=== PATIENT | female | born 1985 | race Caucasian/White ===

== ENCOUNTER 2020-03-04 07:50 | Observation (INO) | payer OTHER ==
[2020-03-04 08:40] VITALS: BP 119/77; PULSE 80
== END 2020-03-04 09:01 | disposition home or self-care (01) ==
LOC: OB 08:15
PROVIDERS: ADMIT Obstetrics & Gynecology; ATTEND Obstetrics & Gynecology
DX: O36.5999 Maternal care for other known or suspected poor fetal growth, unspecified trimester, other fetus (principal); Z3A.35 35 weeks gestation of pregnancy
CPT/HCPCS: 59025; G0378

== ENCOUNTER 2020-03-08 08:06 | Observation (INO) | payer OTHER | END 2020-03-08 09:15 | disposition home or self-care (01) | LOC: OB 08:06 | PROVIDERS: ADMIT Obstetrics & Gynecology; ATTEND Obstetrics & Gynecology | DX: O36.5999 Maternal care for other known or suspected poor fetal growth, unspecified trimester, other fetus (principal); Z3A.36 36 weeks gestation of pregnancy | CPT/HCPCS: 59025; G0378 ==

== ENCOUNTER 2020-03-10 10:48 | Observation (INO) | payer OTHER ==
[2020-03-11 08:37] VITALS: BP 115/75
[2020-03-11 08:59] VITALS: PULSE 104
== END 2020-03-11 09:35 | disposition home or self-care (01) ==
LOC: WHC 10:48 → OB 03-11 08:07
PROVIDERS: ADMIT Obstetrics & Gynecology; ATTEND Obstetrics & Gynecology
DX: Z34.83 Encounter for supervision of other normal pregnancy, third trimester (principal)
CPT/HCPCS: 59025; 87081; G0378; 59425; 81002

== ENCOUNTER 2020-03-15 09:38 | Observation (INO) | payer OTHER ==
[2020-03-15 10:31] VITALS: BP 111/68; PULSE 84
== END 2020-03-15 10:25 | disposition home or self-care (01) ==
LOC: OB 09:38
PROVIDERS: ADMIT Obstetrics & Gynecology; ATTEND Obstetrics & Gynecology
DX: Z34.83 Encounter for supervision of other normal pregnancy, third trimester (principal)
CPT/HCPCS: 59025; G0378

== ENCOUNTER 2020-03-18 09:35 | Observation (INO) | payer OTHER ==
[2020-03-18 10:50] VITALS: BP 115/74; PULSE 96
== END 2020-03-18 10:25 | disposition home or self-care (01) ==
LOC: OB 09:35
PROVIDERS: ADMIT Obstetrics & Gynecology; ATTEND Obstetrics & Gynecology
DX: O36.5930 Maternal care for other known or suspected poor fetal growth, third trimester, not applicable or unspecified (principal); Z3A.37 37 weeks gestation of pregnancy
CPT/HCPCS: 59025; G0378

== ENCOUNTER 2020-03-19 22:00 | Observation (INO) | payer OTHER ==
[2020-03-19 22:44] LABS: Amourphous Crystal FEW /HPF (NEGATIVE); Appearance SLIGHTLY CLOUDY (CLEAR); Bacteria RARE /HPF (NEGATIVE); Bilirubin NEGATIVE (NEGATIVE); Blood SMALL Ery/ul (0-5); Glucose NEGATIVE (NEGATIVE); Ketones NEGATIVE (NEGATIVE); Leukocyte Esterase MODERATE (NEGATIVE); Mucus SLIGHT /HPF (NEGATIVE); Nitrite NEGATIVE (NEGATIVE); Protein,Urine Dip NEGATIVE (Negative); Specific Gravity 1.008 (1.005-1.025); Urobilinogen NEGATIVE mg/dL (0-1); WBC 26-50 /HPF (0-5)
[2020-03-19 22:54] LABS: Amphetamine,Urine NEGATIVE (NEGATIVE); Barbiturate,Urine NEGATIVE (NEGATIVE); Benzodiazepine,Urine NEGATIVE (NEGATIVE); Cocaine,Urine NEGATIVE (NEGATIVE); Methadone,Urine NEGATIVE (NEGATIVE); Opiate,Urine NEGATIVE (NEGATIVE); PCP,Urine NEGATIVE (NEGATIVE); THC,Urine NEGATIVE (NEGATIVE)
[2020-03-19] MEDS: Lactated Ringers 1,000 ML IV SCH (23:02)
[2020-03-19 23:08] LABS: Absolute Neutrophil Ct (ANC) 6.08 (1.4-6.9); BASOPHIL % 0.3 % (0.0-0.4); Basophil (Absolute #) 0.03 (0-0.4); Eosinophil % 0.8 % (0.00-5.0); Eosinophil (Absolute #) 0.07 (0-0.5); Hemoglobin 10.2 gm/dl (12.0-16.0); Lymphocyte (Absolute #) 1.91 (1.0-4.6); Lymphocytes % 21.9 % (24.0-44.0); Mean Cell Volume 89.1 fl (78-100); Mean Corpuscular Hemoglobin 28.4 pg (26-32); Mean Corpuscular Hgb Concent. 31.9 g/dl (32-36); Mean Platelet Volume 9.8 fl (7.5-11.0); Monocyte (Absolute #) 0.64 (0.0-1.3); Monocytes % 7.3 % (0.0-12.0); Neutrophil % 69.7 % (36.0-66.0); Platelet Count 190 K/mm3 (150-450); Red Blood Count 3.59 M/mm3 (4.1-5.4); Red Cell Distribution Width 15.7 % (11.5-14.0); White Blood Count 8.7 K/mm3 (4.0-10.5)
[2020-03-19 23:55] LABS: ABO TYPING A; Antibody Screen NEGATIVE (NEGATIVE); RH TYPING POSITIVE
[2020-03-20 04:53] VITALS: O2SAT 98
[2020-03-20] MEDS: Lactated Ringers 1,000 ML IV SCH (07:00)
[2020-03-20 09:05] VITALS: BP 114/68; PULSE 76
== END 2020-03-20 09:21 | disposition home or self-care (01) ==
LOC: OB 22:00
PROVIDERS: ADMIT Obstetrics & Gynecology; ATTEND Obstetrics & Gynecology
DX: O47.1 False labor at or after 37 completed weeks of gestation (principal); Z3A.37 37 weeks gestation of pregnancy
CPT/HCPCS: 36415; 80307; 81001; 85025; 86850; 86900; 86901; 87086; 87340; G0378

== ENCOUNTER 2020-03-22 07:01 | Observation (INO) | payer OTHER ==
[2020-03-22 10:39] VITALS: BP 123/77; PULSE 82
== END 2020-03-22 10:30 | disposition home or self-care (01) ==
LOC: OB 09:59
PROVIDERS: ADMIT Obstetrics & Gynecology; ATTEND Obstetrics & Gynecology
DX: O36.5930 Maternal care for other known or suspected poor fetal growth, third trimester, not applicable or unspecified (principal); Z3A.38 38 weeks gestation of pregnancy
CPT/HCPCS: 59025; 76816; G0378

== ENCOUNTER 2020-03-25 10:40 | Observation (INO) | payer OTHER ==
[2020-03-25 11:38] VITALS: BP 116/76; PULSE 81
== END 2020-03-25 11:25 | disposition home or self-care (01) ==
LOC: OB 10:40
PROVIDERS: ADMIT Obstetrics & Gynecology; ATTEND Obstetrics & Gynecology
DX: O36.5930 Maternal care for other known or suspected poor fetal growth, third trimester, not applicable or unspecified (principal); Z3A.38 38 weeks gestation of pregnancy
CPT/HCPCS: 59025; G0378

== ENCOUNTER 2020-03-28 03:40 | Inpatient (IN) | payer OTHER ==
[2020-03-28] MEDS ORDERED: STADOL 2 MG IV PRN (20:44)
[2020-03-28] MEDS ORDERED: TYLENOL EXTRA STRENGTH 500 MG PO PRN (20:44)
[2020-03-28] MEDS ORDERED: Zofran 4 MG/2 ML VIAL IV PRN (20:44)
[2020-03-28] MEDS ORDERED: OB EPIDURAL NAROPIN/SUFENTANIL IN NACL EPIDURAL PRN (20:44)
[2020-03-28] MEDS ORDERED: Ephedrine Sulfate 50 MG/ML IV PRN (20:44)
[2020-03-28] MEDS ORDERED: XYLOCAINE 1% HCL 20 ML MDV IJ PRN (20:44)
[2020-03-28] MEDS ORDERED: Nubain 10 MG/ML IV PRN (20:44)
[2020-03-28] MEDS ORDERED: Phenergan 25 MG INJ IV PRN (20:44)
[2020-03-28] MEDS ORDERED: PITOCIN 30 UNITS/ LR 500 ML 30 UNITS/500 ML IV.SOLN. IV SCH (21:00)
[2020-03-28] MEDS: CYTOTEC PO SCH ×2 (21:22→23:19)
[2020-03-28 22:17] LABS: Absolute Neutrophil Ct (ANC) 5.66 (1.4-6.9); BASOPHIL % 0.1 % (0.0-0.4); Basophil (Absolute #) 0.01 (0-0.4); Eosinophil % 0.9 % (0.00-5.0); Eosinophil (Absolute #) 0.08 (0-0.5); Hematocrit 34.3 % (35-47); Lymphocyte (Absolute #) 2.17 (1.0-4.6); Lymphocytes % 25.3 % (24.0-44.0); Mean Cell Volume 89.6 fl (78-100); Mean Corpuscular Hemoglobin 28.7 pg (26-32); Mean Corpuscular Hgb Concent. 32.1 g/dl (32-36); Mean Platelet Volume 10.2 fl (7.5-11.0); Monocyte (Absolute #) 0.66 (0.0-1.3); Monocytes % 7.7 % (0.0-12.0); Platelet Count 232 K/mm3 (150-450); Red Blood Count 3.83 M/mm3 (4.1-5.4); White Blood Count 8.6 K/mm3 (4.0-10.5)
[2020-03-28 22:32] LABS: Amphetamine,Urine NEGATIVE (NEGATIVE); Barbiturate,Urine NEGATIVE (NEGATIVE); Benzodiazepine,Urine NEGATIVE (NEGATIVE); Cocaine,Urine NEGATIVE (NEGATIVE); Methadone,Urine NEGATIVE (NEGATIVE); Opiate,Urine NEGATIVE (NEGATIVE); PCP,Urine NEGATIVE (NEGATIVE); THC,Urine NEGATIVE (NEGATIVE)
[2020-03-28] MEDS: Lactated Ringers 1,000 ML IV ONE (23:17)
[2020-03-28] MEDS: Lactated Ringers 1,000 ML IV SCH (23:18)
[2020-03-29] MEDS: CYTOTEC PO SCH ×5 (01:15→22:39)
[2020-03-29] MEDS: Lactated Ringers 1,000 ML IV ONE (06:10)
[2020-03-29 07:50] VITALS: O2SAT 98
[2020-03-29] MEDS ORDERED: Anucort-HC SUPPOSITORY PR PRN (07:54)
[2020-03-29] MEDS ORDERED: Dulcolax 10 MG SUPP PR PRN (07:54)
[2020-03-29] MEDS ORDERED: CORTISONE 1% CREAM TP PRN (07:54)
[2020-03-29] MEDS ORDERED: Mylicon 80MG PO PRN (07:54)
[2020-03-29] MEDS ORDERED: NORCO 5/325 MG PO PRN (07:54)
[2020-03-29] MEDS ORDERED: LANSINOH 40 GM TOP PRN (07:54)
[2020-03-29] MEDS ORDERED: FERREX 150 PO SCH (10:00)
[2020-03-29] MEDS ORDERED: Adacel Vial IM ONE (10:00)
[2020-03-29] MEDS ORDERED: Colace 100 MG PO SCH (10:00)
[2020-03-29] MEDS ORDERED: M-M-R II Vaccine With Diluent SQ ONE (10:00)
[2020-03-29] MEDS: TUCKS TP PRN (11:59)
[2020-03-29] MEDS: Dermoplast Spray TP PRN (12:00)
[2020-03-29] MEDS: MOTRIN 400 MG PO PRN (16:30)
[2020-03-29] MEDS: PITOCIN 30 UNITS/ LR 500 ML 30 UNITS/500 ML IV.SOLN. IV SCH ×2 (22:37→22:40)
[2020-03-29] MEDS: Lactated Ringers 1,000 ML IV SCH ×2 (22:37→22:38)
[2020-03-30] MEDS: Dermoplast Spray TP PRN (04:45)
[2020-03-30] MEDS: TUCKS TP PRN (04:46)
[2020-03-30 04:48] LABS: BASOPHIL % 0.2 % (0.0-0.4); Basophil (Absolute #) 0.02 (0-0.4); Eosinophil % 1.2 % (0.00-5.0); Eosinophil (Absolute #) 0.12 (0-0.5); Hematocrit 33.6 % (35-47); Hemoglobin 10.7 gm/dl (12.0-16.0); Lymphocyte (Absolute #) 2.29 (1.0-4.6); Lymphocytes % 22.8 % (24.0-44.0); Mean Cell Volume 90.6 fl (78-100); Mean Corpuscular Hemoglobin 28.8 pg (26-32); Mean Corpuscular Hgb Concent. 31.8 g/dl (32-36); Mean Platelet Volume 10.2 fl (7.5-11.0); Neutrophil % 68.8 % (36.0-66.0); Platelet Count 210 K/mm3 (150-450); Red Blood Count 3.71 M/mm3 (4.1-5.4); Red Cell Distribution Width 16.2 % (11.5-14.0)
[2020-03-30] MEDS: MOTRIN 400 MG PO PRN (08:27)
--- NOTE | 2020-03-30 11:12 | PCM.NOTE ---
Date and Time: 03/30/20 110 Subjective Assessment: ppd 1 pt resting in bed and doing well without complaints. able to ambulate and tolerate diet. vss afebrile abd; soft uterus; firm lochia; mild hgb/ 10 a/p sp ppd 1 pt stalbe for discharge today baby has appt for ultrasound to ro hydronephrosis tomorrow therefore pt desires to be discharged today pt should fu in office in 6 wks OBJECTIVE DATA Vital Signs: Vital Signs - 24 hr Temp Pulse Resp BP 03/30/20 06:21 20 03/30/20 03:00 20 03/29/20 23:00 98.0 F 86 20 116/72 03/29/20 19:00 97.6 F 70 20 110/65 03/29/20 15:00 98.2 F 80 18 110/66 Pain Assessment - Last Documented Pain Intensity [Anterior/ 2 Posterior] Pain Intensity 5 Pain Scale Used 0-10 Pain Scale Intake and Output: Intake & Output 03/27/20 03/28/20 03/29/20 03/30/20 11:59 11:59 11:59 11:59 Intake Total 240 Balance 240 Weight 81.647 kg Lab Results: Lab Results-Last 24 Hours 03/30/20 Range/Units 04:15 WBC 10.0 (4.0-10.5) K/mm3 RBC 3.71 L (4.1-5.4) M/mm3 Hgb 10.7 L (12.0-16.0) gm/dl Hct 33.6 L (35-47) % MCV 90.6 (78-100) fl MCH 28.8 (26-32) pg MCHC 31.8 L (32-36) g/dl RDW 16.2 H (11.5-14.0) % Plt Count 210 (150-450) K/mm3 MPV 10.2 (7.5-11.0) fl Gran % 68.8 H (36.0-66.0) % Eos # (Auto) 0.12 (0-0.5) Absolute Lymphs (auto) 2.29 (1.0-4.6) Absolute Monos (auto) 0.70 (0.0-1.3) Lymphocytes % 22.8 L (24.0-44.0) % Monocytes % 7.0 (0.0-12.0) % Eosinophils % 1.2 (0.00-5.0) % Basophils % 0.2 (0.0-0.4) % Absolute Granulocytes 6.90 (1.4-6.9) Basophils # 0.02 (0-0.4)
--- NOTE | 2020-03-30 11:16 | PCM.DCORD ---
- Discharge Prescriptions: No Action Aspirin 81 gm Chew [Baby Aspirin 81 mg Chew] 2 mg PO DAILY Vits W-Ca,Fe,FA(<1Mg) [] 1 tab PO DAILY Calcium Carbonate [Tums] 200 mg PO DAILY PRN PRN Reason: Indigestion Follow up with: NORM BROWN DO [ACTIVE STAFF] - 05/11/20 (should fu in office in 6 wks for care)
--- NOTE | 2020-03-30 11:19 | PCM.DS ---
Discharge Summary Date of Admission: 03/29/20 03:40 Admitting Physician: NORM BROWN DO Consults: Consults on Case 03/29/20 07:55 Notify Physician ROUTINE Primary Care Provider: CLIFTON MCCORD Allergies Allergies erythromycin base Allergy (Intermediate, Verified 03/28/20 23:12) Hives Penicillins Adverse Reaction (Mild, Verified 03/28/20 23:12) Itching Hospital Summary - Hospital Course Hospital Course: pt admitted on mar 29 for being in labor and subsequently delivered live baby boy without complication at 0728. during period did very well and had stable h/h and at this time stable for discharge. baby with possible hydronephrosis as was diagnosed with recent ultrasound and now baby scheduled for ultrasound tomorrow in the am. all questions answered to her satisfaction and at this time pt is stable for discharge. - Vitals & Intake/Output Vital Signs: Vital Signs Temperature 98.0 F 03/29/20 23:00 Pulse Rate 86 03/29/20 23:00 Respiratory Rate 20 03/30/20 06:21 Blood Pressure 116/72 03/29/20 23:00 O2 Sat by Pulse Oximetry 98 03/29/20 11:00 Intake & Output: Intake & Output 03/27/20 03/28/20 03/29/20 03/30/20 11:59 11:59 11:59 11:59 Intake Total 240 Balance 240 Weight 81.647 kg - Lab Result Diagrams: 03/30/20 04:15 Lab Results-Last 24 Hrs: Lab Results-Last 24 Hours 03/30/20 Range/Units 04:15 WBC 10.0 (4.0-10.5) K/mm3 RBC 3.71 L (4.1-5.4) M/mm3 Hgb 10.7 L (12.0-16.0) gm/dl Hct 33.6 L (35-47) % MCV 90.6 (78-100) fl MCH 28.8 (26-32) pg MCHC 31.8 L (32-36) g/dl RDW 16.2 H (11.5-14.0) % Plt Count 210 (150-450) K/mm3 MPV 10.2 (7.5-11.0) fl Gran % 68.8 H (36.0-66.0) % Eos # (Auto) 0.12 (0-0.5) Absolute Lymphs (auto) 2.29 (1.0-4.6) Absolute Monos (auto) 0.70 (0.0-1.3) Lymphocytes % 22.8 L (24.0-44.0) % Monocytes % 7.0 (0.0-12.0) % Eosinophils % 1.2 (0.00-5.0) % Basophils % 0.2 (0.0-0.4) % Absolute Granulocytes 6.90 (1.4-6.9) Basophils # 0.02 (0-0.4) - Procedures and Test Procedures and Tests throughout Hospitalization: Therapy Orders & Screens 03/29/20 07:56 Standby ROUTINE Comment: - Discharge Disposition: Home, Self-Care Condition: Stable Prescriptions: No Action Aspirin 81 gm Chew [Baby Aspirin 81 mg Chew] 2 mg PO DAILY Vits W-Ca,Fe,FA(<1Mg) [] 1 tab PO DAILY Calcium Carbonate [Tums] 200 mg PO DAILY PRN PRN Reason: Indigestion Follow up with: NORM BROWN DO [ACTIVE STAFF] - 05/11/20 (should fu in office in 6 wks for care)
[2020-03-30 17:36] VITALS: BP 122/75; PULSE 72
== END 2020-03-30 14:15 | disposition home or self-care (01) | DRG 807 ==
LOC: OB 03:40 → OBSVTOIN 03-29 03:40
PROVIDERS: ADMIT Obstetrics & Gynecology; ATTEND Obstetrics & Gynecology
PROC: 10E0XZZ Delivery of Products of Conception, External Approach (ICD-10-PCS; principal; 2020-03-29)
PROC: 0HQ9XZZ Repair Perineum Skin, External Approach (ICD-10-PCS; 2020-03-29)
DX: O70.0 First degree perineal laceration during delivery (principal); Z37.0 Single live birth; Z3A.39 39 weeks gestation of pregnancy
CPT/HCPCS: 36415; 59400; 80307; 85025; 90707; 90715; 94799; G0378; J2590; J2795; A9270-GY

== ENCOUNTER 2020-06-08 06:28 | Day surgery (SDC) | payer OTHER ==
[2020-06-08] MEDS ORDERED: Lactated Ringers 1,000 ML IV ONE (06:48)
[2020-06-08] MEDS ORDERED: CLINDAMYCIN-D5W 900 MG/50 ML*** 900 MG/50 ML BAG IV ONE (06:48)
[2020-06-08] MEDS ORDERED: Lactated Ringers 1,000 ML IV SCH (07:00)
[2020-06-08] MEDS ORDERED: CLINDAMYCIN-D5W 900 MG/50 ML*** 900 MG/50 ML BAG IV SCH (07:00)
[2020-06-08] MEDS ORDERED: Sensorcaine 0.25% 10 ML ONE (07:21)
[2020-06-08] MEDS ORDERED: DIPRIVAN 200 MG/20 ML IV ONE (08:04)
[2020-06-08] MEDS ORDERED: Decadron 4 MG INJ ONE (08:04)
[2020-06-08] MEDS ORDERED: SUBLIMAZE 100 MCG/2 ML ONE (08:04)
[2020-06-08] MEDS ORDERED: Zemuron 100 MG/10 ML ONE (08:04)
[2020-06-08] MEDS ORDERED: Zofran 4 MG/2 ML VIAL ONE (08:04)
[2020-06-08] MEDS ORDERED: Versed 2 MG/2 ML Injection ONE (08:04)
[2020-06-08] MEDS ORDERED: TORAdol 30 mg Injection ONE (08:49)
[2020-06-08] MEDS ORDERED: BRIDION 200MG/2ML IV ONE (08:51)
[2020-06-08] MEDS ORDERED: NORCO 5/325 MG PO ONE (09:57)
[2020-06-08 10:17] VITALS: O2SAT 98
[2020-06-08 10:26] VITALS: BP 116/82; PULSE 74
--- NOTE | 2020-06-09 11:40 | OP ---
SURGERY DATE/TIME: 06/08/2020 0826 PREOPERATIVE DIAGNOSIS: 1. MULTIPARITY DESIRING TUBAL STERILIZATION. POSTOPERATIVE DIAGNOSIS: 1. MULTIPARITY DESIRING TUBAL STERILIZATION. PROCEDURE: 1. Laparoscopic tubal sterilization via Falope ring application. SURGEON: Jonny Sullivan D.O. HERB DIGGER: mckenna Campbell. ANESTHESIA: General. ESTIMATED BLOOD LOSS: Minimal. COMPLICATIONS: None. INDICATIONS: The risks, benefits, indications and alternatives of the procedure were reviewed with the patient prior to the procedure. The patient understood the risk of infection, bleeding, bowel injury, bladder injury, ureteral injury, uterine perforation, possible , ectopic that may be associated with this procedure as well as irregular bleeding and menorrhagia that could also be associated with this procedure. The patient given all other forms of control as options. However, desires to have this form of control method. DESCRIPTION OF PROCEDURE AND FINDINGS: From this point the patient was taken to the operating room, given general sedation, placed in dorsal lithotomy position. Prepped and draped in the usual sterile fashion. A weighted speculum was then placed in the patient's vagina and the anterior lip of the cervix was grasped with a single tooth tenaculum. From this point, a uterine manipulator was then placed into the endocervical canal and was used to manipulate the uterus. Attention was then turned to the patient's abdomen where a 5 mm incision was made approximately 1 cm above the umbilicus where a 5 mm trocar and sleeve were advanced under direct visualization where pneumoperitoneum was obtained with 4 liters of CO2 gas. An additional incision was made approximately 2 cm above the symphysis pubis where an 8 mm incision was made and the 8 mm trocar was advanced under direct visualization as well. From this point, a survey of the patient's pelvis revealed her to have normal anatomy with no gross abnormalities. From this point, the uterus was elevated with the uterine manipulator and a Falope ring applicator was then inserted into the 8 mm port where it was used approximately 3 cm from the cornua region on the right side. It was applied and displaced on the right isthmic-ampullary region where a good knuckle of tube was obtained with the Falope ring. From this point, the Falope ring applicator was reloaded with another ring and again was displaced on the left side on the isthmic-ampullary region where a good knuckle of approximately 2 cm tube had been obtained with the Falope ring. There was no bleeding noted from either side and no issues or complications that were ascertained. From this point, all instruments were then removed from the patient's abdominal region and the incisions were closed with 3-0 Monocryl suture. The patient was taken out of dorsal lithotomy position and was taken out of anesthesia and was then taken to the recovery room in stable condition. All instruments and laps were accounted for x2.
== END 2020-06-08 10:35 | disposition home or self-care (01) ==
LOC: SDC 06:28
PROVIDERS: ATTEND Obstetrics & Gynecology
DX: Z30.2 Encounter for sterilization (principal)
CPT/HCPCS: 84703; J1100; J1885; J2250; J2405; J2704; J3010; A9270-GY

== ENCOUNTER 2021-02-22 05:51 | Day surgery (SDC) | payer OTHER ==
[2021-02-22] MEDS ORDERED: Lactated Ringers 1,000 ML IV SCH (06:30)
[2021-02-22] MEDS ORDERED: CEFAZOLIN 2 GM-D5W BAG** 2 GM/50 ML ML IV ONE ×2 (06:41→06:42)
[2021-02-22] MEDS ORDERED: Zofran 4 MG/2 ML VIAL ONE (07:21)
[2021-02-22] MEDS ORDERED: DIPRIVAN 200 MG/20 ML IV ONE (07:21)
[2021-02-22] MEDS ORDERED: Decadron 4 MG INJ ONE (07:21)
[2021-02-22] MEDS ORDERED: SUBLIMAZE 100 MCG/2 ML ONE (07:22)
[2021-02-22] MEDS ORDERED: Versed 2 MG/2 ML Injection ONE (07:58)
[2021-02-22] MEDS ORDERED: TORAdol 30 mg Injection ONE (08:09)
[2021-02-22] MEDS ORDERED: DEMEROL 50 MG ONE (08:30)
[2021-02-22 09:08] VITALS: O2SAT 100
[2021-02-22 09:43] VITALS: PULSE 65
[2021-02-22 09:44] VITALS: BP 128/64
--- NOTE | 2021-02-23 08:22 | OP ---
SURGERY DATE/TIME: 02/22/2021 0757 PREOPERATIVE DIAGNOSIS: Menorrhagia, failed medical management. POSTOPERATIVE DIAGNOSIS: Menorrhagia, failed medical management. PROCEDURE: Hysteroscopy, D&C with NovaSure ablation. SURGEON: Jonny Sullivan D.O. POLYETHYLENE BAG MACHINE OPERATOR: Natasha Terry costume technician. ANESTHESIA: General. ESTIMATED BLOOD LOSS: Minimal. COMPLICATIONS: None. INDICATIONS: The risks, benefits, indications and alternatives of the procedure were reviewed with the patient prior to the procedure. The patient understood the risk of infection, bleeding, bowel injury, bladder injury, ureteral injury, uterine perforation, pelvic infection, thromboembolic disorder associated with the surgery however desires to have this surgery as a possible means to alleviate her current medical condition. DESCRIPTION OF PROCEDURE AND FINDINGS: At this point the patient is taken to the operating room, given general sedation, placed in dorsal lithotomy position, prepped and draped in the usual sterile fashion. A weighted speculum is then placed in the patient's vagina and the anterior lip of the cervix is grasped with a single tooth tenaculum. Endocervical dilators advanced to the endocervical canal as a means to dilate the cervix and at this point a 5 mm hysteroscope was then placed into the fundus of the uterus where visualization revealed no gross abnormalities. The hysteroscope was then removed and the curette was then placed into the fundus of the uterus and curettage was performed in all quadrants of the uterus retrieving a mild to moderate amount of endometrial tissue. From this point hemostasis is obtained. From this point the NovaSure was grasped and was placed in through the endocervical canal towards the fundal region and retracted approximately 1 cm where the instrument was engaged and at this point it was set at 6.5 cm in length with a width of 4.2 cm. The NovaSure was turned on for an ablative time of 56 seconds and after the ablative time the instrument was then disengaged and removed from the uterine cavity. The procedure took place without complication. From this point all other instruments were removed from the patient's vaginal region. The patient was then taken out of the dorsal lithotomy position, was then taken out of anesthesia and was then taken to the recovery room in stable condition. All instruments and laps were accounted for x2.
== END 2021-02-22 09:35 | disposition home or self-care (01) ==
LOC: SDC 05:51
PROVIDERS: ATTEND Obstetrics & Gynecology
DX: N92.0 Excessive and frequent menstruation with regular cycle (principal)
CPT/HCPCS: 84703; J0690; J1100; J1885; J2175; J2250; J2405; J2704; J3010